=== PATIENT | male | born 1985 | race Caucasian/White ===

== ENCOUNTER 2019-11-27 11:58 | Emergency (ER) | payer OTHER, SELFPAY ==
[2019-11-27 12:20] VITALS: BP 110/65; PULSE 75; RESP 16; TEMP 36.7; O2SAT 99
--- NOTE | 2019-11-27 13:31 | ED.GENADULT ---
HPI - General Adult General Chief complaint: Upper Respiratory Infection Stated complaint: Sinus Infection Time Seen by Provider: 11/27/19 13:31 Source: patient Mode of arrival: ambulatory Limitations: no limitations History of Present Illness HPI narrative: 34-year-old male patient presents to the [facility] with complaints of cold symptoms for the past 3 weeks. Patient states that he has been treated for sinus infections twice in the last 2 months with antibiotics. Patient states that he has been put on antibiotics and states that symptoms seem to get better and then about a week later they come back. Patient states he has had the symptoms today for the last 3 weeks. Patient states he has been putting a bucket of water on his radiator he has been using Flonase, Benadryl, 24-hour antihistamine, Sudafed. Patient states he continues to have some nasal congestion, pressure to the head as well as pressure to the ears. Denies any chest pain or shortness of breath. Denies any coughing or sore throat at this time. Related Data Home Medications Medication Instructions Recorded Confirmed dextroamphetamine-amphetamine 20 mg PO QAM 09/27/19 11/27/19 [Adderall XR] Allergies Allergy/AdvReac Type Severity Reaction Status Date / Time No Known Allergies Allergy Verified 11/27/19 12:26 Review of Systems Review of Systems: Narrative: CONSTITUTIONAL: Denies fever, chills, or sweats. EYES: Denies visual changes, redness, or discharge. ENT: Positive rhinorrhea, congestion, sore throat, and bilateral otalgia. CARDIOVASCULAR: Denies chest pain, palpitations, or edema. RESPIRATORY: Denies cough or dyspnea. GASTROINTESTINAL: Denies abdominal pain, nausea, vomiting, or diarrhea. GENITOURINARY: Denies dysuria or hematuria. SKIN: Denies rash or itching. MUSCULOSKELETAL: Denies back pain, joint pain, or myalgia. NEUROLOGIC: Positive headache, denies numbness, or weakness. PSYCHIATRIC: Denies anxiety or depression. [facility] Past Medical History Medical History ADHD Family History Family History Other Diabetes mellitus Social History Social History Smoking status: Heavy tobacco smoker Gender identity (if verbalized by the patient): Male Comments At the time of my signature I agree with nursing past medical history, surgical, social, and family history. There is no relevant family history pertinent to the presenting complaint. Exam Narrative: Exam Narrative: GENERAL: Well-appearing, well-nourished, and in no acute distress. HEAD: Normocephalic, atraumatic. Tenderness noted to frontal maxillary sinuses on palpation. EYES: PERRLA and EOMI. ENT: Nares with erythema and edema noted bilaterally, no rhinorrhea or epistaxis. Mucous membranes moist. Posterior pharynx with slight erythema but no tonsil enlargement no exudates or lesions present. Bilateral TMs are little cloudy. NECK: Supple. No lymphadenopathy CHEST: Clear to auscultation. No respiratory distress. HEART: Regular rate and rhythm. No murmur heard. Normal peripheral pulses. ABDOMEN: Soft, nontender, nondistended, normal active bowel sounds. EXTREMITIES: Normal range of motion. No edema. SKIN: Warm, dry, no rash. NEURO: No focal deficits. Alert and oriented x3. Course Vital Signs Vital signs: Vital Signs Temperature 36.7 C 11/27/19 12:20 Pulse Rate 75 11/27/19 12:20 Respiratory Rate 16 11/27/19 12:20 Blood Pressure 110/65 11/27/19 12:20 Pulse Oximetry 99 11/27/19 12:20 Temperature 36.7 C 11/27/19 12:20 Pulse Rate 75 11/27/19 12:20 Respiratory Rate 16 11/27/19 12:20 Blood Pressure 110/65 11/27/19 12:20 Pulse Oximetry 99 11/27/19 12:20 Vital signs reviewed. Medical Decision Making Differential Diagnosis Differential Diagnosis: Differential diagnosis: Allergic rhin
== END 2019-11-27 13:43 | disposition home or self-care (01) ==
PROVIDERS: Emergency Provider Nurse Practitioner Family; PCP Nurse Practitioner Family
DX: J00 Acute nasopharyngitis [common cold] (principal); J01.90 Acute sinusitis, unspecified; J01.01 Acute recurrent maxillary sinusitis; F17.200 Nicotine dependence, unspecified, uncomplicated; F90.9 Attention-deficit hyperactivity disorder, unspecified type
CPT/HCPCS: 99213; G0463

== ENCOUNTER 2020-02-16 12:15 | Outpatient (CLI) | payer OTHER, BC, SELFPAY ==
--- NOTE | ~2020-02-16 | CT_ITS ---
EXAMINATION: CT sinus wo con DATE: 02/16/2020 13:01 INDICATION: Chronic sinusitis TECHNIQUE: Computed tomography (CT) of the paranasal sinuses was performed without intravenous contra st. The dose-length product was 323.68 mGy-cm. COMPARISON: None FINDINGS: Paranasal sinuses are pneumatized. No significant mucosal thickening. No air-fluid levels. Rightward nasal septal deviation. Ostiomeatal units are patent. There is a left-sided nirav bullosa. There is hypertrophy of the left inferior turbinate. Mastoids are pneumatized. IMPRESSION: 1. No significant sinus disease. Reviewed, dictated and finalized at location A.
== END 2020-02-16 12:16 | disposition home or self-care (01) ==
PROVIDERS: PCP Nurse Practitioner Family; Visit Provider Otolaryngology
DX: J32.9 Chronic sinusitis, unspecified (principal)
CPT/HCPCS: 70486

== ENCOUNTER 2020-06-26 12:48 | Emergency (ER) | payer BC, OTHER, SELFPAY ==
--- NOTE | ~2020-06-26 | XR_ITS ---
EXAMINATION: XR chest 2V DATE: 06/26/2020 13:23 INDICATION: Shortness of breath. Left-sided chest pain. TECHNIQUE: frontal and lateral views of the chest were obtained. COMPARISON: Chest radiograph dated 03/09/2015 FINDINGS: The lungs remain clear with no focal airspace opacities, pulmonary edema, pleural effusion or pneumot horax. The cardiomediastinal silhouette is normal. Visualized bones and soft tissues are unremarkable . IMPRESSION: 1. No acute cardiopulmonary disease. Reviewed, dictated and finalized at location A.
--- NOTE | 2020-06-26 12:54 | ED.GENADULT ---
HPI - General Adult General Chief complaint: Shortness of Breath/Dyspnea Stated complaint: DIFFICULTY BREATHING Time Seen by Provider: 06/26/20 13:01 Source: patient Mode of arrival: ambulatory Limitations: no limitations History of Present Illness HPI narrative: 35-year-old male patient presents to the [facility] with complaints of shortness of breath for a week and left-sided chest pain that started yesterday. Patient states that he feels like his lungs are full. Patient states he has had asthma in the past but states he has never had issues for quite some times and had does not actually have an inhaler at this time. Patient states he thought at first it was his sinuses because he does get seasonal allergies and sinus issues frequently and has been taking [id number] antihistamines for this. Patient states he has had a little bit of a cough but nonproductive. Denies any fevers, body aches or chills. Denies any abdominal pain, nausea, vomiting or diarrhea. Patient states that he works [employer] but denies coming into contact with anybody with COVID that he is aware of. Related Data Home Medications Medication Instructions Recorded Confirmed dextroamphetamine-amphetamine 20 mg PO QAM 09/27/19 06/26/20 [Adderall XR] Allergies Allergy/AdvReac Type Severity Reaction Status Date / Time No Known Allergies Allergy Verified 11/27/19 12:26 Review of Systems Review of Systems: Narrative: CONSTITUTIONAL: Denies fever, chills, or sweats. EYES: Denies visual changes, redness, or discharge. ENT: Denies rhinorrhea, congestion, sore throat, or otalgia. CARDIOVASCULAR: Denies chest pain, palpitations, or edema. RESPIRATORY: Denies cough or dyspnea. GASTROINTESTINAL: Denies abdominal pain, nausea, vomiting, or diarrhea. GENITOURINARY: Denies dysuria or hematuria. SKIN: Denies rash or itching. MUSCULOSKELETAL: Denies back pain, joint pain, or myalgia. NEUROLOGIC: Denies headache, numbness, or weakness. PSYCHIATRIC: Denies anxiety or depression. [facility] Past Medical History Medical History (Updated 06/26/20 @ 13:46 by COY Castillo) ADHD Anxiety Asthma History of strep sore throat Scoliosis Seasonal allergies Social History Social History Smoking status: Heavy tobacco smoker Gender identity (if verbalized by the patient): Male Comments At the time of my signature I agree with nursing past medical history, surgical, social, and family history. There is no relevant family history pertinent to the presenting complaint. Exam Narrative: Exam Narrative: GENERAL: Well-appearing, well-nourished, and in no acute distress. HEAD: Normocephalic, atraumatic. EYES: PERRLA and EOMI. ENT: Nares clear, no rhinorrhea or epistaxis. Mucous membranes moist. Posterior pharynx with no erythema, tonsillar margin, exudates or lesions present. Bilateral TMs are clear with no erythema or foreign bodies to the canal. NECK: Supple. No lymphadenopathy CHEST: Patient has decreased lung sounds noted to the right upper and lower lobe more so on the lower right lobe.. Patient does appear to be sitting slightly tripoding and does look like he is having a little bit of labored breathing. No coughing noted during time of exam. HEART: Regular rate and rhythm. No murmur heard. Normal peripheral pulses. ABDOMEN: Soft, nontender, nondistended, normal active bowel sounds. EXTREMITIES: Normal range of motion. No edema. SKIN: Warm, dry, no rash. NEURO: No focal deficits. Alert and oriented x3. Course Reevaluation(s) Reevaluation #1: Reevaluated patient after DuoNeb has been completed. Discussed with patient that his x-ray is clear of any pneumonia. Discussed with him that his EKG does not show any acute issues going on the possibly some chronic stuff that he needs to most likely follow-up with his primary doctor. Lung sounds are improved to the right side after the DuoNeb. Patient states he st
[2020-06-26 12:58] VITALS: BP 128/88; PULSE 67; RESP 16; TEMP 37.1; O2SAT 100
--- NOTE | 2020-06-26 13:08 | ECG_ITS ---
Measurements Intervals [place] Rate: 62 P: 56 [place]: 178 QRS: 4 QRSD: 106 T: 6 QT: 365 QTc: 373 Interpretive Statements SINUS RHYTHM INCOMPLETE RIGHT BUNDLE BRANCH BLOCK VOLTAGE CRITERIA FOR LVH MINIMAL Q WAVES- HIGH LATERAL LEADS BORDERLINE ECG Electronically Signed On 06-26-2020 14:34:46 CDT by Nikolas Bedoya D.O.
[2020-06-26] MEDS: ALBUTEROL SULFATE NEB 2.5 MG/3 ML INH INHALATION (13:26)
[2020-06-26] MEDS: IPRATROPIUM BR 0.02% INH SOLN 0.5 MG/2.5 ML VIAL INHALATION (13:27)
== END 2020-06-26 13:46 | disposition short-term general hospital (02) ==
PROVIDERS: Emergency Provider Nurse Practitioner Family; PCP Family Medicine
DX: R06.02 Shortness of breath (principal); R07.89 Other chest pain; I45.10 Unspecified right bundle-branch block; F90.9 Attention-deficit hyperactivity disorder, unspecified type; M41.9 Scoliosis, unspecified; F17.200 Nicotine dependence, unspecified, uncomplicated
CPT/HCPCS: 71046; 93005; 94640; 99213; G0463

== ENCOUNTER 2020-06-26 14:03 | Emergency (ER) | payer OTHER, BC, SELFPAY ==
[2020-06-26 14:13] VITALS: BP 148/84; PULSE 68; RESP 20; TEMP 36.8; O2SAT 100
--- NOTE | 2020-06-26 14:15 | ECG_ITS ---
Measurements Intervals [place] Rate: 63 P: 50 [place]: 179 QRS: 12 QRSD: 93 T: 16 QT: 362 QTc: 373 Interpretive Statements SINUS RHYTHM VOLTAGE CRITERIA FOR LVH MINIMAL Q WAVES- HIGH LATERAL LEADS BORDERLINE ECG Electronically Signed On 06-26-2020 14:41:18 CDT by Nikolas Bedoya D.O.
[2020-06-26 14:30] LABS: Basophils Percent Auto 0.4 % (0.2-1.2); Eosinophils Absolute Auto 0.2 K/mm3 (0-0.3); Eosinophils Percent Auto 4.5 % (0-4.4); Hematocrit 41.1 % (42.0-52.0); Hemoglobin 14.6 g/dL (14.0-18.0); Immature Granulocyte Absolute 0.02 K/mm3 (0.00-0.031); Immature Granulocyte Percent A 0.4 % (0-0.5); Lymphocytes Absolute Auto 1.62 K/mm3 (0.9-3.2); Lymphocytes Percent Auto 32.9 % (18.3-44.2); Mean Corpuscular HGB Conc 35.5 g/dl (32-36); Mean Corpuscular Hemoglobin 29.7 pg (26-34); Mean Corpuscular Volume 83.7 fl (80-100); Mean Platelet Volume 10.5 fl (7.4-10.4); Monocytes Absolute Auto 0.3 K/mm3 (0.1-0.6); Monocytes Percent Auto 6.1 % (2.6-8.5); Neutrophils Absolute Auto 2.8 K/mm3 (1.3-6.7); Neutrophils Percent Auto 55.7 % (45.5-73.1); Platelet Count Result 144 k/mm3 (150-375); Red Blood Count 4.91 M/mm3 (4.6-6.20); Red Cell Distribution Width 12.1 % (11.5-14.5); White Blood Count 4.9 K/mm3 (4.5-10.0)
[2020-06-26 14:40] LABS: Anion Gap 8 mmol/L (8-16); Blood Urea Nitrogen 11 mg/dL (9-20); Calcium 9.2 mg/dL (8.4-10.2); Carbon Dioxide 26 mmol/L (22-30); Chloride 103 mmol/L (98-107); Estimated CRCL calculation 84 ml/min; Estimated Glomerular Filt Rate > 60; Glucose 117 mg/dL (75-110); Potassium 3.9 mmol/L (3.4-5.0); Sodium 137 mmol/L (137-145)
[2020-06-26 14:42] LABS: Partial Thromboplastin Time 25.8 SECONDS (22.3-36.8)
[2020-06-26 14:45] LABS: D Dimer < 0.22 ug/mL (<0.48)
[2020-06-26 14:52] LABS: Troponin I < 0.012 ng/mL (0.000-0.034)
[2020-06-26 17:14] VITALS: BP 120/72; PULSE 58; O2SAT 100
[2020-06-26 19:13] LABS: Troponin I < 0.012 ng/mL (0.000-0.034)
--- NOTE | 2020-06-26 19:44 | ED.CHESTPAIN ---
HPI - Chest Pain General Chief Complaint: Chest Pain Stated Complaint: chest pain, sob Time Seen by Provider: 06/26/20 19:02 Source: patient Mode of arrival: ambulatory Limitations: no limitations History of Present Illness HPI narrative: This is a 35 year old male that presents to the ER for shortness of breath x 1 week. Also reports intermittent sharp chest pains. Reports history of asthma, but has not needed his inhaler in some time. He was seen at the urgent care and sent here for further evaluation. Denies fever, congestion, sore throat, or cough. Related Data Home Medications Medication Instructions Recorded Confirmed dextroamphetamine-amphetamine 20 mg PO QAM 09/27/19 06/26/20 [Adderall XR] Allergies Allergy/AdvReac Type Severity Reaction Status Date / Time No Known Allergies Allergy Verified 11/27/19 12:26 Review of Systems Review of Systems: Narrative: CONSTITUTIONAL: Denies fever ENT: Denies rhinorrhea, congestion, sore throat CARDIOVASCULAR: Reports chest pain. Denies edema. RESPIRATORY: Reports dyspnea. Denies cough All systems reviewed & are unremarkable except as noted in HPI and below PMFSH Past Medical History Medical History (Updated 06/26/20 @ 19:53 by Evangelina Sanabria PA-C) ADHD Anxiety Asthma History of strep sore throat Scoliosis Seasonal allergies Social History Social History Smoking status: Heavy tobacco smoker Gender identity (if verbalized by the patient): Male Exam Narrative: Exam Narrative: GENERAL: Well-appearing, well-nourished, and in no acute distress. HEAD: Normocephalic, atraumatic. EYES: EOMI. ENT: Nares clear, no rhinorrhea or epistaxis. Mucous membranes moist. Oropharynx without tonsillar hypertrophy exudate or other lesions. Bilateral TMs pearly villalta non-bulging NECK: Supple. No adenopathy or masses. CHEST: Clear to auscultation. No respiratory distress. No wheezes rales or rhonchi HEART: Regular rate and rhythm. No murmur heard. Normal peripheral pulses. EXTREMITIES: Normal range of motion. No edema. SKIN: Warm, dry, no rash. NEURO: No focal deficits. Alert and oriented x3. PSYCH: Normal mood and affect Course Vital Signs Vital signs: Vital Signs Temperature 98.2 F 06/26/20 14:13 Pulse Rate 68 06/26/20 14:13 Respiratory Rate 20 06/26/20 14:13 Blood Pressure 148/84 H 06/26/20 14:13 Pulse Oximetry 100 06/26/20 14:13 Temperature 98.2 F 06/26/20 14:13 Pulse Rate 58 L 06/26/20 17:14 Respiratory Rate 20 06/26/20 14:13 Blood Pressure 120/72 06/26/20 17:14 Pulse Oximetry 100 06/26/20 17:14 MDM - Chest Pain MDM Narrative Medical decision making narrative: Patient presents the emergency department for shortness of breath x1 week. Also reported some intermittent sharp chest pain. Patient's vitals are stable. He denies any fever, cough, or sore throat. CBC without acute findings. Metabolic panel without concerning changes. EKG without concerning changes. Baseline and 3-hour troponin are negative. D-dimer is negative. He had a chest x-ray at the urgent care prior to his arrival here which was without acute findings. Patient was able to ambulate in the ED and maintain normal oxygen saturation. Patient is stable and felt appropriate further outpatient evaluation. He is to follow-up with his primary care doctor. He was given warnings to return to the ER Lab Data Attestation: I reviewed the patient's lab results. Result diagrams: 06/26/20 14:06/26/20 14:20 Labs: Lab Results 06/26/20 06/26/20 06/26/20 Range/Units 14: 14:20 14:20 WBC 4.9 (4.5-10.0) K/mm3 RBC 4.91 (4.6-6.20) M/mm3 Hgb 14.6 (14.0-18.0) g/dL Hct 41.1 L (42.0-52.0) % MCV 83.7 (80-100) fl MCH 29.7 (26-34) pg MCHC 35.5 (32-36) g/dl RDW 12.1 (11.5-14.5) % Plt Count 144 L (150-375) k/mm3 MPV 10.5 H (7.4-10.4) fl
[2020-06-26 20:18] VITALS: BP 123/78; PULSE 68; RESP 18; O2SAT 100
== END 2020-06-26 20:20 | disposition home or self-care (01) ==
PROVIDERS: Emergency Provider Emergency Medicine; PCP Family Medicine
DX: R06.02 Shortness of breath (principal); R07.9 Chest pain, unspecified; F90.9 Attention-deficit hyperactivity disorder, unspecified type; J45.909 Unspecified asthma, uncomplicated
CPT/HCPCS: 36415; 71046; 80048; 84484; 85025; 85380; 85610; 85730; 93005; 94640; 99284

== ENCOUNTER 2020-09-08 06:53 | Outpatient (NON) | payer OTHER, BC, SELFPAY ==
[2020-09-09 23:03] LABS: SARS-CoV-2 RNA PCR Positive
== END 2020-09-08 06:54 ==
PROVIDERS: PCP Family Medicine; Visit Provider Nurse Practitioner Family
DX: U07.1 COVID-19 (principal)
CPT/HCPCS: 87635; C9803; U0003

== ENCOUNTER 2021-02-19 09:13 | Emergency (ER) | payer BC, SELFPAY ==
[2021-02-19 09:21] VITALS: BP 119/77; PULSE 65; RESP 16; TEMP 36.8; O2SAT 98
--- NOTE | 2021-02-19 09:22 | ED.BACK ---
HPI - Back Pain/Injury General Chief Complaint: Back Pain/Injury Stated Complaint: back pain Time Seen by Provider: 02/19/21 09:22 Source: patient and RN notes reviewed Mode of arrival: ambulatory Limitations: no limitations History of Present Illness HPI Narrative: 35-year-old male presents to the [facility] with complaints of back pain. Pain to the right mid to lower back. States that he has been doing yard work. Denies any trauma. No history of kidney stones. No urinary symptoms. No loss or retention of bowel or bladder. Denies any numbness or tingling in extremities. No chest pain or shortness of breath. No abdominal pain. MD elicited complaint: back pain Onset (ago): week(s) (1) Timing: intermittent Severity: mild Similar Symptoms Previously: No Quality: sharp and aching Location: lumbar spine and right lower back Radiation: none Exacerbating factors: movement, sitting upright, walking and lifting Relieving factors: none Context: while lifting, turning/twisting and bending Associated symptoms: denies other symptoms Related Data Home Medications Medication Instructions Recorded Confirmed dextroamphetamine-amphetamine 20 mg PO QAM 09/27/19 02/19/21 [Adderall XR] Allergies Allergy/AdvReac Type Severity Reaction Status Date / Time No Known Allergies Allergy Verified 02/19/21 09:25 Review of Systems Review of Systems: All systems reviewed & are unremarkable except as noted in HPI and below Constitutional: Constitutional: Reports no additional constitutional complaints, Denies chills, Denies fatigue, Denies fever(s) and Denies weakness Cardiovascular: Cardiovascular: Reports no additional cardiovascular complaints and Denies chest pain Respiratory: Respiratory: Reports no additional respiratory complaints, Denies cough, Denies dyspnea and Denies wheezing Gastrointestinal: Gastrointestinal: Reports no additional gastrointestinal complaints, Denies abdominal pain, Denies diarrhea, Denies nausea and Denies vomiting Genitourinary: Genitourinary: Reports no additional male genitourinary complaints, Denies hematuria, Denies dysuria, Denies urinary frequency and Denies urinary incontinence Musculoskeletal: Musculoskeletal: Reports as per HPI, Reports back pain (Right mid to lower), Denies myalgias, Denies arthralgias and Reports muscle cramps (Right mid to lower back pain) Integumentary/Breasts: Skin/Breast: Reports system reviewed and no additional complaints, except as docu Neurologic: Reports system reviewed and no additional complaints, except as documented, Denies dizziness, Denies syncope, Denies headache(s), Denies focal weakness, Denies numbness and Denies weakness Psychiatric: Psychiatric: Reports no additional psychiatric complaints PMFSH Past Medical History Medical History (Updated 02/19/21 @ 09:28 by Ida Serna) ADHD Anxiety Asthma History of strep sore throat Scoliosis Seasonal allergies Family History Family History Other Diabetes mellitus Social History Social History Smoking status: Heavy tobacco smoker Gender identity (if verbalized by the patient): Male Comments At the time of my signature, I reviewed and agree with the nursing past medical, surgical, social, and family history. There is no relevant family history pertinent to the patient complaint. Exam Const: General: healthy appearing, no acute distress and alert Nutritional Appearance: well nourished Orientation/consciousness: patient oriented x3 HENMT: Head: normal to inspection Eyes: Pupils: Equal, round and reactive pupils present Neck: Neck: normal visual inspection and no lymphadenopathy Chest: Chest palpation & inspection: normal inspection of the chest Resp: Effort & Inspection: normal respiratory effort and no use of accessory muscles Auscultation: clear to auscultation bilaterally, no crackles, no ral
== END 2021-02-19 09:31 | disposition home or self-care (01) ==
PROVIDERS: Emergency Provider Nurse Practitioner; PCP Nurse Practitioner Family
DX: S39.012A Strain of muscle, fascia and tendon of lower back, initial encounter (principal); X58.XXXA Exposure to other specified factors, initial encounter; Y93.H9 Activity, other involving exterior property and land maintenance, building and construction; J45.909 Unspecified asthma, uncomplicated; M41.9 Scoliosis, unspecified; F90.9 Attention-deficit hyperactivity disorder, unspecified type
CPT/HCPCS: 99213; G0463

== ENCOUNTER 2022-04-05 10:57 | Outpatient (CLI) | payer BC, SELFPAY ==
--- NOTE | ~2022-04-05 | XR_ITS ---
EXAMINATION: XR abdomen/kub 1V INDICATION: Nausea TECHNIQUE: Supine views of the abdomen were obtained on 2 radiographs. COMPARISON: None FINDINGS: The bowel gas pattern is normal. There are no dilated loops of bowel. The visualized lung b ases are clear. The osseous structures are unremarkable. IMPRESSION: 1. No radiographic correlate for the patient's symptoms. Reviewed, dictated and finalized at location F.
== END 2022-04-05 10:58 ==
PROVIDERS: PCP Nurse Practitioner Family; Visit Provider Nurse Practitioner Family
DX: R11.0 Nausea (principal)
CPT/HCPCS: 74018

== ENCOUNTER 2022-12-24 10:16 | Emergency (ER) | payer BC, SELFPAY ==
[2022-12-24 10:33] VITALS: BP 121/60; PULSE 62; RESP 20; TEMP 36.1; O2SAT 99
--- NOTE | 2022-12-24 11:21 | ED.EAR ---
HPI - Ear Problem General Chief complaint: Ear Stated complaint: ear pain Time Seen by Provider: 12/24/22 11:23 Source: patient, RN notes reviewed and old records reviewed Mode of arrival: ambulatory Limitations: no limitations History of Present Illness HPI Narrative: 37-year-old male presents to the [facility] with complaints of left ear pain for 4-5 days. Had been using Q-tips. Denies fevers. Related Data Home Medications Medication Instructions Recorded Confirmed dextroamphetamine-amphetamine ER 20 mg PO QAM 09/27/19 12/24/22 20 mg 24hr capsule,extend release (Adderall XR) varenicline 0.5 mg (11)-1 mg (42) ea 12/24/22 12/24/22 tablets in a dose pack Allergies Allergy/AdvReac Type Severity Reaction Status Date / Time No Known Allergies Allergy Verified 12/24/22 10:45 Review of Systems Review of Systems: All systems reviewed & are unremarkable except as noted in HPI and below Constitutional: Constitutional: Reports no additional constitutional complaints Eyes: Eyes: Reports no additional eye complaints ENT: Reports as per HPI and Reports otalgia (Left) Cardiovascular: Cardiovascular: Reports no additional cardiovascular complaints, Denies chest pain and Denies dyspnea Respiratory: Respiratory: Reports no additional respiratory complaints, Denies chest congestion, Denies cough and Denies dyspnea Gastrointestinal: Gastrointestinal: Reports no additional gastrointestinal complaints, Denies abdominal pain, Denies nausea and Denies vomiting Musculoskeletal: Musculoskeletal: Reports no additional musculoskeletal complaints Integumentary/Breasts: Skin/Breast: Reports system reviewed and no additional complaints, except as docu Neurologic: Reports system reviewed and no additional complaints, except as documented Psychiatric: Psychiatric: Reports no additional psychiatric complaints Allergic/Immunologic: Allergic/Immunologic: Reports no additional allergic/immunologic complaints [facility] Past Medical History Medical History ADHD Anxiety Asthma History of strep sore throat Scoliosis Seasonal allergies Family History Family History Other Diabetes mellitus Social History Social History Smoking status: Heavy tobacco smoker Gender identity (if verbalized by the patient): Male Comments At the time of my signature, I reviewed and agree with the nursing past medical, surgical, social, and family history. There is no relevant family history pertinent to the patient complaint. Exam Const: General: cooperative, healthy appearing, comfortable, no acute distress, well developed, alert and well nourished Nutritional Appearance: well nourished Orientation/consciousness: patient oriented x3 Limitations: no limitations HENMT: Head: normal to inspection Ears: hearing grossly normal bilaterally, external ears normal, TM's normal bilaterally, mastoids normal, no periauricular adenopathy and Abnormal EAC present erythema on the left (2-7 o'clock) and EAC tenderness on the left; no otic discharge Face/Nose/Sinus: Normal external nose present, Normal nares present, Normal nasal mucous membranes and turbinates present and normal facial exam Face and sinus: normal facial exam Mouth: Yes Normal oral and palatal mucosa present, Yes lip normal and Yes moist mucous membranes Throat: posterior oropharynx normal and uvula midline Eyes: General: appearance normal, both eyes and all related structures Alignment and Position: alignment normal Periorbital: periorbital findings normal Conjunctivae: conjunctivae normal Pupils: Equal, round and reactive pupils present EOM: EOMs intact bilaterally Neck: Neck: normal visual inspection, full ROM, no lymphadenopathy and no meningeal signs Chest: Chest palpation & inspection: normal inspection of the chest
== END 2022-12-24 11:35 | disposition home or self-care (01) ==
PROVIDERS: Emergency Provider Nurse Practitioner; PCP Nurse Practitioner Family
DX: H61.892 Other specified disorders of left external ear (principal); F17.200 Nicotine dependence, unspecified, uncomplicated
CPT/HCPCS: 99213; G0463